=== PATIENT | male | born 1980 | race Caucasian/White ===

== ENCOUNTER 2021-03-30 11:38 | Outpatient (REF) | payer MEDICARE, MEDICAID, SELFPAY ==
--- NOTE | 2021-04-06 10:46 | MHC.AU.ANO ---
Adult Audiological Evaluation Date of Visit: 03/30/21 Drop Board Man Used: Not Applicable Reason for Appointment: Audiologic evaluation due to decreased hearing in the left ear. Preet was accompanied today by his parents who report he frequently experiences occluding cerumen and had his ears cleaned approximately one month ago. Does patient feel they have a hearing loss?: Yes If Yes, Which Ear?: Left Ear Has hearing been tested previously?: Yes Previous Hearing Test Results: As a child, results are not available for review. Hearing Handicap Inventory: HHIE SCORE: 26 Based on HHIE score, patient has: Severe perceived hearing handicap Ear History: Ear Infections in Childhood: Question of Both Ears History of Ear Wax Buildup: Both Ears History of occupational noise exposure?: No Medical History: Medical History: Down Syndrome, Thyroid Disease, Mzpt-Wipjaivuf-Iuwcl Pattern, Legally Blind (Corneal Transplant), Gout Medication List: Doxycycline Hyclate, Levothyroxine, Ibuprofen, Fluorometholone drops Otoscopy: Right Ear: Partially occluded with cerumen Left Ear: Partially occluded with cerumen Tympanometry: Tympanometry performed due to: To assess integrity of the middle ear system Right Ear: Normal Middle Ear System (Type A) Left Ear: Non-compliant Middle Ear System (Type B) Otoacoustic Emissions Frequency Range Used: 1.6-8 kHz Right Ear Results: Tested several times with highly variable results for each run. Left Ear Results: Tested several times with highly variable results for each run. Hearing Evaluation: Transducer(s) Used: Insert Earphones Bone Conduction Method: Conventional Audiometry Stimuli Used: Pure Tones Right Ear: Description of Hearing: Borderline normal to mild sensorineural hearing loss Left Ear: Description of Hearing: Moderate sensorineural hearing loss through all frequencies Speech Recognition Threshold (SRT): Method Used: Monitored Live Voice Stimuli Used: Spondee Words Right Ear: 25 dB HL Left Ear: 55 dB HL Word Discrimination: Method: Recorded Lists Word Lists Used: NU-6 Right Ear: 100% at 65 dB HL Left Ear: 68% at 85 dB HL Recommendations: - Referral to Ear, Nose, and Throat to address the significant asymmetry and left ear middle ear dysfunction. - Trial with amplification is recommended. for the left ear. - Medical clearance from a physician is required before fitting. - Following medical consultation and receiving medical clearance, Preet may schedule a Hearing Aid Evaluation at this office. - Audiological re-evaluation in one year. Will send a reminder card. Diagnosis: Primary Diagnosis: H69.92 Unspecified Eustachian Tube Dysfunction, Left Ear Secondary Diagnosis: H90.3 Bilateral Sensorineural Hearing Loss Services Performed: Comprehensive Audiological Evaluation (CPT 67672) Diagnostic Otoacoustic Emissions (CPT 04650, 26+TC) Tympanometry (CPT 44685) Signature: Provider: Leonora Schumacher, LUIS-A
== END 2021-03-30 11:39 | disposition home or self-care (01) ==
LOC: HO.SH 11:38
PROVIDERS: Visit Provider Internal Medicine
DX: H69.92 Unspecified Eustachian tube disorder, left ear (principal); H90.3 Sensorineural hearing loss, bilateral
CPT/HCPCS: 92557; 92567; 92588

== ENCOUNTER 2021-07-13 12:34 | Outpatient (REF) | payer MEDICARE, MEDICAID, SELFPAY ==
--- NOTE | 2021-07-16 13:31 | MHC.AU.HAS ---
Hearing Aid Evaluation Date of Visit: 07/13/21 Window Shade Cloth Sewer Used: Parents Accompanied Historical Information: Description of Hearing: Right ear - Borderline normal to mild sensorineural hearing loss Left ear - Moderate sensorineural hearing loss through all frequencies Current personal amplification information, if applicable: NONE Summary: Due to the asymmetric hearing loss and fluctuating change in hearing related to cerumen build-up as well as middle ear function, advise bilateral BTE hearing aids with standard earmolds. To help Preet be more independent with the aids, advise rechargeable hearing aids. Mother will be able to use [email or web address].tv Jaqueline for remote adjustments if needed. Performed cerumen removal for both ears and bilateral impressions taken without complication. Hearing Aid Prescription: Based on the individual?s shared listening needs, communication environments, dexterity, desire for connectivity, and personal preferences, the following prescription for amplification has been made: Right ear: Supervisor [place]: Parsimotion Model: Intexys AI 1600 BTE-R Battery Size: Rechargeable Color: Champagne Tubing: Tube Lock Type of Mold: Rika Skeleton Left ear: Left ear prescription to be same as Right Hearing Aid above: Supervisor [place]: Parsimotion Model: [employer] AI 1600 BTE-R Battery Size: Rechargeable Color: Champagne Tubing: Tube Lock Type of Mold: Rika Skeleton Plan of Care: Patient wishes to purchase hearing aids as prescribed Action Taken/Action Needed: Earmold Impressions Taken Hearing Instrument Fitting to be scheduled when materials arrive Comments: Medical Clearance in chart Primary Diagnosis: H90.3 Bilateral Sensorineural Hearing Loss Signature: Provider: Leonora Schumacher, CCC-A
== END 2021-07-13 12:35 | disposition home or self-care (01) ==
LOC: HO.HAP 12:34
PROVIDERS: Visit Provider Otolaryngology
DX: Z46.1 Encounter for fitting and adjustment of hearing aid (principal); H90.3 Sensorineural hearing loss, bilateral
CPT/HCPCS: 92591; V5275

== ENCOUNTER 2021-08-01 10:28 | Outpatient (REF) | payer MEDICARE, MEDICAID, SELFPAY | END 2021-08-01 10:29 | disposition home or self-care (01) | LOC: HO.HAP 10:28 | PROVIDERS: Visit Provider Otolaryngology | DX: Z46.1 Encounter for fitting and adjustment of hearing aid (principal); H90.3 Sensorineural hearing loss, bilateral | CPT/HCPCS: V5011; V5020; V5160; V5261; V5264 ==

== ENCOUNTER 2021-08-17 10:39 | Outpatient (REF) | payer MEDICARE, MEDICAID, SELFPAY | END 2021-08-17 10:40 | disposition home or self-care (01) | LOC: HO.HAP 10:39 | PROVIDERS: Visit Provider Internal Medicine | DX: Z13.89 Encounter for screening for other disorder (principal) ==

== ENCOUNTER 2021-09-25 10:35 | Outpatient (REF) | payer MEDICARE, MEDICAID, SELFPAY ==
[2021-09-25 10:41] LABS: MANUAL DIFF FLAG NO
[2021-09-25 10:54] LABS: Basophils Absolute Auto 0.1 X10*3/uL (0.0-0.2); Basophils Percent Auto 1.1 % (0-2); Eosinophils Percent Auto 0.5 % (0-4); Hematocrit 46.3 % (42.0-52.0); Hemoglobin 15.2 g/dl (14.0-18.0); Imm Gran Abs Auto 0.02 X10*3/uL (0.00-0.03); Imm Gran Pct Auto 0.3 % (0.0-0.4); Lymphocytes Absolute Auto 3.1 X10*3/uL (1.2-4.9); Mean Corpuscular HGB Conc 32.8 g/dl (31.0-36.0); Mean Corpuscular Hemoglobin 32.3 pg (27.0-33.0); Mean Corpuscular Volume 98.3 fL (80.0-98.0); Mean Platelet Volume 9.8 fL (9.4-12.4); Monocytes Absolute Auto 0.5 X10*3/uL (0.1-1.2); Monocytes Percent Auto 7.8 % (2-11); Neutrophils Absolute Auto 2.8 x10*3/uL (2.0-8.3); Neutrophils Percent Auto 43.3 % (45-73); Platelet Count 260 X10*3/uL (160-400); Red Blood Count 4.71 X10*6/uL (4.60-5.80); White Blood Count 6.5 X10*3/uL (4.8-10.8)
[2021-09-25 11:01] LABS: Appearance Urine CLEAR; Color Urine YELLOW; Glucose Urine UA NEG (NEG); Leukocyte Esterase Urine NEG (NEG); Nitrite Urine NEG (NEG); PH 6.5 (5.0-8.0); Specific Gravity - Urine 1.025 (1.005-1.025); Urine Blood NEG (NEG); Urine Ketones NEG (NEG); Urine Protein NEG (NEG-TRACE)
[2021-09-25 11:13] LABS: Alanine Aminotransferase 31 U/L (0-40); Albumin Level 3.7 g/dL (3.5-5.0); Alkaline Phosphatase 89 U/L (39-117); Anion Gap 14 (12-20); Aspartate Amino Transferase 28 U/L (5-37); Bilirubin Total 0.9 mg/dL (0.0-1.0); Blood Urea Nitrogen 15 mg/dL (9-16); Calcium 8.5 mg/dL (8.4-10.2); Carbon Dioxide 27 mmol/L (22-29); Chloride 105 mmol/L (96-108); Cholesterol 191 mg/dL; Estimated Glomerular Filt Rate > 60; Glucose Fasting 94 mg/dL (60-99); HDL Cholesterol 44 mg/dL; LDL Cholesterol Calculated 127 mg/dl; Sodium 142 mmol/L (135-145); Total Protein 7.2 g/dL (6.5-8.0); Triglycerides 100 mg/dL
[2021-09-25 11:22] LABS: PSA,Total (Free>4and<10) 0.05 ng/mL (0.00-4.00); TSH reflex Free T4 0.63 uIU/mL (0.32-4.0)
== END 2021-09-25 10:36 | disposition home or self-care (01) ==
LOC: HO.LNP 10:35
PROVIDERS: PCP Internal Medicine; Visit Provider Internal Medicine
DX: Z12.5 Encounter for screening for malignant neoplasm of prostate (principal); E03.8 Other specified hypothyroidism
CPT/HCPCS: 80053; 80061; 81003; 84153; 84443; 85025

== ENCOUNTER 2021-10-23 10:44 | Outpatient (REF) | payer MEDICARE, MEDICAID, SELFPAY ==
[2021-10-23 10:47] LABS: MANUAL DIFF FLAG NO
[2021-10-23 10:49] LABS: Basophils Absolute Auto 0.1 X10*3/uL (0.0-0.2); Basophils Percent Auto 1.1 % (0-2); Eosinophils Absolute Auto 0.1 X10*3/uL (0.0-0.4); Eosinophils Percent Auto 0.7 % (0-4); Hematocrit 49.4 % (42.0-52.0); Imm Gran Abs Auto 0.02 X10*3/uL (0.00-0.03); Imm Gran Pct Auto 0.3 % (0.0-0.4); Lymphocytes Absolute Auto 3.5 X10*3/uL (1.2-4.9); Lymphocytes Percent Auto 47.1 % (20-40); Mean Corpuscular HGB Conc 32.4 g/dl (31.0-36.0); Mean Corpuscular Hemoglobin 31.9 pg (27.0-33.0); Mean Corpuscular Volume 98.6 fL (80.0-98.0); Mean Platelet Volume 9.6 fL (9.4-12.4); Monocytes Absolute Auto 0.5 X10*3/uL (0.1-1.2); Monocytes Percent Auto 6.8 % (2-11); Neutrophils Absolute Auto 3.2 x10*3/uL (2.0-8.3); Platelet Count 257 X10*3/uL (160-400); Red Blood Count 5.01 X10*6/uL (4.60-5.80); White Blood Count 7.3 X10*3/uL (4.8-10.8)
== END 2021-10-23 10:45 | disposition home or self-care (01) ==
LOC: HO.LNP 10:44
PROVIDERS: Visit Provider Internal Medicine
DX: D72.820 Lymphocytosis (symptomatic) (principal)
CPT/HCPCS: 85025

== ENCOUNTER 2022-07-11 14:11 | Outpatient (REF) | payer MEDICARE, MEDICAID, SELFPAY | END 2022-07-11 14:12 | disposition home or self-care (01) | LOC: HO.SH 14:11 | PROVIDERS: Visit Provider Internal Medicine | DX: Z01.118 Encounter for examination of ears and hearing with other abnormal findings (principal); H90.3 Sensorineural hearing loss, bilateral | CPT/HCPCS: 92557; 92567 ==

== ENCOUNTER 2022-10-03 11:06 | Outpatient (REF) | payer MEDICARE, MEDICAID, SELFPAY ==
[2022-10-03 11:09] LABS: MANUAL DIFF FLAG NO
[2022-10-03 11:26] LABS: Basophils Absolute Auto 0.1 X10*3/uL (0.0-0.2); Basophils Percent Auto 1.1 % (0-2); Eosinophils Percent Auto 0.5 % (0-4); Hematocrit 45.8 % (42.0-52.0); Hemoglobin 15.3 g/dl (14.0-18.0); Imm Gran Abs Auto 0.02 X10*3/uL (0.00-0.03); Imm Gran Pct Auto 0.3 % (0.0-0.4); Lymphocytes Absolute Auto 2.8 X10*3/uL (1.2-4.9); Lymphocytes Percent Auto 43.6 % (20-40); Mean Corpuscular HGB Conc 33.4 g/dl (31.0-36.0); Mean Corpuscular Hemoglobin 32.5 pg (27.0-33.0); Mean Corpuscular Volume 97.2 fL (80.0-98.0); Mean Platelet Volume 9.8 fL (9.4-12.4); Monocytes Absolute Auto 0.6 X10*3/uL (0.1-1.2); Monocytes Percent Auto 8.7 % (2-11); Neutrophils Percent Auto 45.8 % (45-73); Platelet Count 254 X10*3/uL (160-400); Red Blood Count 4.71 X10*6/uL (4.60-5.80); Red Cell Distribution Width 13.7 % (11.0-16.0); White Blood Count 6.4 X10*3/uL (4.8-10.8)
[2022-10-03 11:42] LABS: Appearance Urine Clear; Color Urine Yellow; Glucose Urine UA Negative (Negative); Leukocyte Esterase Urine Negative (Negative); Nitrite Urine Negative (Negative); Specific Gravity - Urine >= 1.030 (1.005-1.025); Urine Blood Negative (Negative); Urine Ketones Negative (Negative); Urine Protein Negative (Neg-Trace)
[2022-10-03 11:46] LABS: Alanine Aminotransferase 30 U/L (0-40); Albumin Level 3.7 g/dL (3.5-5.0); Alkaline Phosphatase 85 U/L (39-117); Anion Gap 12 (12-20); Aspartate Amino Transferase 26 U/L (5-37); Bilirubin Total 1.1 mg/dL (0.0-1.0); Blood Urea Nitrogen 13 mg/dL (9-16); Calcium 8.2 mg/dL (8.4-10.2); Carbon Dioxide 29 mmol/L (22-29); Chloride 103 mmol/L (96-108); Cholesterol 196 mg/dL; Estimated Glomerular Filt Rate > 60; Glucose Fasting 90 mg/dL (60-99); HDL Cholesterol 41 mg/dL; LDL Cholesterol Calculated 139 mg/dl; Potassium 3.9 mmol/L (3.3-5.1); Sodium 140 mmol/L (135-145); Total Protein 6.8 g/dL (6.5-8.0); Triglycerides 82 mg/dL
[2022-10-03 12:02] LABS: PSA,Total (Free>4and<10) < 0.10 ng/mL (0.00-4.00)
== END 2022-10-03 11:07 | disposition home or self-care (01) ==
LOC: HO.LNP 11:06
PROVIDERS: Visit Provider Internal Medicine
DX: D72.820 Lymphocytosis (symptomatic) (principal); E03.8 Other specified hypothyroidism; Z12.5 Encounter for screening for malignant neoplasm of prostate
CPT/HCPCS: 80053; 80061; 81003; 84153; 85025

== ENCOUNTER 2023-10-06 10:47 | Outpatient (REF) | payer MEDICARE, MEDICAID, SELFPAY ==
[2023-10-06 10:51] LABS: MANUAL DIFF FLAG NO
[2023-10-06 11:42] LABS: Basophils Absolute Auto 0.1 X10*3/uL (0.0-0.2); Basophils Percent Auto 1.2 % (0-2); Eosinophils Percent Auto 0.5 % (0-4); Hematocrit 48.8 % (42.0-52.0); Hemoglobin 16.2 g/dl (14.0-18.0); Imm Gran Abs Auto 0.02 X10*3/uL (0.00-0.03); Imm Gran Pct Auto 0.3 % (0.0-0.4); Lymphocytes Absolute Auto 3.7 X10*3/uL (1.2-4.9); Mean Corpuscular HGB Conc 33.2 g/dl (31.0-36.0); Mean Corpuscular Hemoglobin 32.3 pg (27.0-33.0); Mean Corpuscular Volume 97.2 fL (80.0-98.0); Mean Platelet Volume 9.8 fL (9.4-12.4); Monocytes Absolute Auto 0.5 X10*3/uL (0.1-1.2); Monocytes Percent Auto 6.3 % (2-11); Neutrophils Absolute Auto 3.3 x10*3/uL (2.0-8.3); Neutrophils Percent Auto 43.7 % (45-73); Platelet Count 257 X10*3/uL (160-400); Red Blood Count 5.02 X10*6/uL (4.60-5.80); Red Cell Distribution Width 14.4 % (11.0-16.0); White Blood Count 7.6 X10*3/uL (4.8-10.8)
[2023-10-06 11:43] LABS: Appearance Urine Clear; Color Urine Yellow; Glucose Urine UA Negative (Negative); Leukocyte Esterase Urine Negative (Negative); Nitrite Urine Negative (Negative); PH 5.5 (5.0-9.0); Specific Gravity - Urine 1.025 (1.005-1.025); Urine Blood Negative (Negative); Urine Ketones Negative (Negative); Urine Protein Negative (Neg-Trace)
[2023-10-06 11:47] LABS: Bacteria Urine None Seen (None Seen); Hyaline Casts Urine 0-2 /LPF (0-2); RBC Urine 0-2 /HPF (0-2); Squamous Epithelial Cell Urine 0-2 /HPF (0-2); WBC Urine 0-5 /HPF (0-5)
[2023-10-06 12:00] LABS: Alanine Aminotransferase 41 U/L (0-40); Albumin Level 3.8 g/dL (3.5-5.0); Alkaline Phosphatase 84 U/L (39-117); Anion Gap 13 (12-20); Aspartate Amino Transferase 34 U/L (5-37); Bilirubin Total 0.7 mg/dL (0.0-1.0); Blood Urea Nitrogen 16 mg/dL (9-16); Calcium 9.4 mg/dL (8.4-10.2); Carbon Dioxide 29 mmol/L (22-29); Chloride 105 mmol/L (96-108); Cholesterol 186 mg/dL (<200); Estimated Glomerular Filt Rate > 60; Glucose Fasting 97 mg/dL (60-99); HDL Cholesterol 47 mg/dL (>40); LDL Cholesterol Calculated 120 mg/dL (<100); Potassium 4.1 mmol/L (3.3-5.1); Sodium 143 mmol/L (135-145); Total Protein 7.7 g/dL (6.5-8.0); Triglycerides 96 mg/dL (<150)
[2023-10-06 12:15] LABS: PSA,Total (Free>4and<10) < 0.10 ng/mL (0.00-4.00); TSH reflex Free T4 0.23 uIU/mL (0.32-4.0)
[2023-10-06 12:56] LABS: Free T4 (Free Thyroxine) 1.07 ng/dL (0.71-1.85)
== END 2023-10-06 10:48 | disposition home or self-care (01) ==
LOC: HO.LNP 10:47
PROVIDERS: Visit Provider Internal Medicine
DX: E03.8 Other specified hypothyroidism (principal); D72.820 Lymphocytosis (symptomatic); Z12.5 Encounter for screening for malignant neoplasm of prostate
CPT/HCPCS: 80053; 80061; 81001; 84153; 84439; 84443; 85025

== ENCOUNTER 2023-11-24 09:27 | Outpatient (REF) | payer MEDICARE, MEDICAID, SELFPAY | END 2023-11-24 09:28 | disposition home or self-care (01) | LOC: HO.HAP 09:27 | PROVIDERS: Visit Provider Internal Medicine | DX: Z13.89 Encounter for screening for other disorder (principal) ==

== ENCOUNTER 2023-11-26 08:15 | Outpatient (REF) | payer MEDICARE, MEDICAID, SELFPAY ==
--- NOTE | 2023-11-26 09:27 | MHC.AU.HA3 ---
Hearing Instrument Follow-Up- Binaural Date of Visit: 11/26/23 Right Ear: Vernon, Model, Color, Serial Number: Rika Bonilla AI 1600 ARNIEE-Ondina Rod Serial #[id number] Sweatband Separator Repair Warranty: 10/15/2024 Sweatband Separator Loss and Damage Warranty: 10/15/2024 [facility] Service Plan: 08/01/2022 Battery Size: Rechargeable Digital Press Operator/Slim Tube: Earmold/Dome/CShell/SlimTip:Rika Skeleton - remake warranty 10/22/2021 Type of Wax Guard: Dispensed By: [facility] Date of Fittin08/01/2021 Left Ear: Vernon, Model, Color, Serial Number: Rika Bonilla AI 1600 ARNIEE-R Viola Serial #[id number] Sweatband Separator Repair Warranty: 10/15/2024 Sweatband Separator Loss and Damage Warranty: 10/15/2024 [facility] Service Plan: 08/01/2022 Battery Size: Rechargeable Digital Press Operator/Slim Tube: Earmold/Dome/CShell/SlimTip: Rika Skeleton - remake warranty 10/22/2021 Type of Wax Guard: Dispensed By: [facility] Date of Fittin08/01/2021 Follow-Up Summary: HAs had been dropped off. Cleaned, checked, and retubed by NEERAJ. Preet's mother requested appointment to pick up operator to confirm they were working okay. Fit looks good. Preet reports good subjective comfort and benefit. Mother had some questions about the dusty, ultimately decided there was no benefit to her running the dusty on her phone connected to his hearing aids. She notes he has been seeing the ENT regularly since last eval visit with Cristina in 2021. Recommendations: Recommendations: Hearing instrument maintenance in 6 months, or sooner if needed. Diagnosis Code(s): Primary Diagnosis: H90.3 Bilateral Sensorineural Hearing Loss Secondary Diagnosis: H90.3 Bilateral Sensorineural Hearing Loss Signature: Provider: Sita Lee, CCC-A
== END 2023-11-26 08:16 | disposition home or self-care (01) ==
LOC: HO.HAP 08:15
PROVIDERS: Visit Provider Internal Medicine
DX: Z46.1 Encounter for fitting and adjustment of hearing aid (principal); H90.3 Sensorineural hearing loss, bilateral
CPT/HCPCS: 92593; 99499

== ENCOUNTER 2024-02-06 09:13 | Outpatient (REF) | payer MEDICARE, MEDICAID, SELFPAY ==
--- NOTE | 2024-02-06 12:13 | MHC.AU.HA3 ---
Addendum entered and electronically signed by Leonora Martinez, CCC-A 02/06/24 12:25: Earmolds are ripped, ordered new molds from scans on file. Will call patient to have new molds put on hearing aids once they arrive. Order # [id number] Original Note: Hearing Instrument Follow-Up- Binaural Date of Visit: 02/06/24 Right Ear: Vernon, Model, Color, Serial Number: Rika Bonilla AI 1600 BTE-Ondina Rod Serial #[id number] Php Software Engineer Repair Warranty: 10/15/2024 Php Software Engineer Loss and Damage Warranty: 10/15/2024 [facility] Service Plan: 08/01/2022 Battery Size: Rechargeable Inner Tube Inserter/Slim Tube: Earmold/Dome/CShell/SlimTip:Rika Skeleton - remake warranty 10/22/2021 Type of Wax Guard: Dispensed By: [facility] Date of Fittin08/01/2021 Left Ear: Vernon, Model, Color, Serial Number: Rika Bonilla AI 1600 BTE-R Viola Serial #[id number] Php Software Engineer Repair Warranty: 10/15/2024 Php Software Engineer Loss and Damage Warranty: 10/15/2024 [facility] Service Plan: 08/01/2022 Battery Size: Rechargeable Inner Tube Inserter/Slim Tube: Earmold/Dome/CShell/SlimTip: Rika Skeleton - remake warranty 10/22/2021 Type of Wax Guard: Dispensed By: [facility] Date of Fittin08/01/2021 Follow-Up Summary: Preet is here with his mother for evaluation, last tested here 2021 when there was a significant shift in his right thresholds, was reportedly seen by ENT who did not suspect a sudden loss (mom is unsure if he had a test there, or exactly what the outcome of the appointment was). Testing today essentially stable with 2021 evaluation. Both tubes clogged with wax, retubed and cleaned aids/earmolds. Listening check ok. Reprogrammed aids to current thresholds as right ear was still significantly under target. Preet reported he could hear much better after cleaning and adjustments. 6 month maintenance recommended. Results of audio to be sent to ENT, reports he is being seen for cerumen management there on Friday. Recommendations: Recommendations: Hearing instrument maintenance in 6 months, or sooner if needed. Diagnosis Code(s): Primary Diagnosis: H90.3 Bilateral Sensorineural Hearing Loss Signature: Provider: Leonora Martinez, CCC-A
== END 2024-02-06 09:14 | disposition home or self-care (01) ==
LOC: HO.SH 09:13
PROVIDERS: Visit Provider Internal Medicine
DX: Z01.118 Encounter for examination of ears and hearing with other abnormal findings (principal); Z46.1 Encounter for fitting and adjustment of hearing aid; H90.3 Sensorineural hearing loss, bilateral
CPT/HCPCS: 92557; 92593; 99499

== ENCOUNTER 2024-02-17 11:14 | Outpatient (REF) | payer MEDICARE, MEDICAID, SELFPAY | END 2024-02-17 11:15 | disposition home or self-care (01) | LOC: HO.HAP 11:14 | PROVIDERS: Visit Provider Internal Medicine | DX: Z46.1 Encounter for fitting and adjustment of hearing aid (principal); H90.3 Sensorineural hearing loss, bilateral | CPT/HCPCS: V5264 ==

== ENCOUNTER 2024-08-10 09:45 | Outpatient (REF) | payer MEDICARE, MEDICAID, SELFPAY ==
--- OUTSIDE RECORDS SUMMARY | 2024-08-10 10:13 | XMS_ITS | Continuity of Care Document ---
Author Organization [place] - [facility], [facility] Address [address] [place] [address] Assessment No assessment recorded. Plan of Treatment Reminders Order Date Submit Date Provider Last Modified By Organization Details Last Modified Time Details Appointments Establish ed 30 2024 10:00A M MIKY Nj MD Not available Not available Not available Lab None recorded. Referral None recorded. Procedures None recorded. Surgeries None recorded. Imaging None recorded. Medication Orders None recorded. Patient TargetsNo targets recorded. Patient InstructionsNo instructions recorded. Reason for Referral None Reported. Problems Name Problem SNOMED Code Status Onset Date Resolution Date Notes Provider Name and Address Organization Details Recorded Time Impacted cerumen of bilateral ears 48972997174 79482 Active 2020 Impacted cerumen, bilateral ; Note: Date Diagnosed : 1 11:09 AM (H61.23) Not Available [facility] 4 03:18:52 Sensorine ural hearing loss of bilateral ears 875067039 Active 2020 Sensorine ural hearing loss, bilateral ; Note: Date Diagnosed : 1 11:09 AM (H90.3) Not Available [facility] 4 03:18:52 Impacted cerumen in left ear 21199436468 38446 Active 2023 MIKY WALLACE MD [address] [place] [address], [place], [address] , [facility] - [facility] 4 10:11:42 Impacted cerumen in right ear 53728228493 12309 Active 2023 MIKY WALLACE MD [address] [place], [place] [address] [place], [address] , [facility] - [facility] 4 10:11:42 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 Procedures Surgical History Date Name Laterality Status Provider Name and Address Organization Details Recorded Time 4 Cerumen removal with microscope bilateral completed MIKY WALLACE MD [address] [facility],[place] [address], [place], [address], [place] - [facility] 07/12/2024 11:34:49 4 Cerumen removal with microscope bilateral completed MIKY WALLACE MD [address] [facility],[place] [address], [place], [address], [facility] - [facility] 02/09/2024 10:12:24 Imaging Results None recorded. Procedure Notes None recorded. Medical Equipment None Reported. Medications Name Sig Start Date Stop Date Status Note LastModified by Organization Details LastModified Time doxycyclin e hyclate 100 mg capsule active Medication ID: [id number] Marlena nd Name: doxycyclin e hyclate Se nd Method: E-Prescrib ed Subs Allowed: subs OK Medicat ionGeneric Name: doxycyclin e hyclate Not Available Not Available Not Available ibuprofen 800 mg tablet active Medication ID: [id number] Marlena nd Name: ibuprofen Send Method: E-Prescrib ed Subs Allowed: subs OK Medicat ionGeneric Name: ibuprofen Not Available Not Available Not Available levothyrox ine 100 mcg tablet TAKE 1 TABLET BY MOUTH EVERY DAY IN THE MORNING active Not Available Not Available No t Available neomycin-p olymyxin-d exameth 3.5 mg/mL-10,0 00 unit/mL-0. 1% eye drops active Medication ID: [id number] Marlena nd Name: neomycin-p olymyxin B-dexameth Send Method: E-Prescrib ed Subs Allowed: subs OK Medicat ionGeneric Name: neomycin-p olymyxin B-dexameth Not Available Not Available Not Available fluorometh olone 0.1 % eye drops,susp ension SHAKE LIQUID AND INSTILL 1 DROP IN RIGHT EYE DAILY active Not Available Not Available No t Available bacitracin -polymyxin B 500 unit-10,00 0 unit/gram eye ointment active Medication ID: [id number] Bra nd Name: bacitracin -polymyxin B Send Method: E-Prescrib ed Subs Allowed: subs OK Medicat ionGeneric Name: bacitracin -polymyxin B Not Available Not Available Not Available Vitals Date Recorded Body height Body mass index (BMI) Body weight Provider Name and Address Organization Details Last Updated DateTime 07/12/2024 162.56 cm 39.8 kg/m2 304638.43 g Teena Nye [place] - [facility] 07/12/2024 11:14:24 Social History None recorded. Functional Status None recorded. Mental Status None recorded. Family History Nothing Reported. Medical History No medical history recorded. Past Encounters Encounter ID Performer Location Encounter Start Date Encounter Closed Date Diagnosis/Indication Diagnosis SNOMED-CT Code Diagnosis ICD10 Code Diagnosis Note [id number] MIKY WALLACE MD [facility] of [address] [address] 07/12/2024 11:03:02 07/12/2024 11:36:25 Impacted cerumen of bilateral ears [id number] 460854 H61.23 Recurrent Cerumen Impactions : Ears were meticulous ly cleaned bilaterall y today with a curette and suction. The patient tolerated this well and will follow up for repeat debridemen t per routine. Complete t risomy 21 syndrome 26964571 Q90.9 requires debridemen ts. using VANEGAS. no problems with hearing. Sensorineu ral hearing loss of bilateral ears 736228053 H90.3 Had hearing aids adjusted. Keep using. Health Concerns Section Related Observation LastModified by Organization Detai ls LastModified Time None Recorded Concern Status LastModified by Organization Details LastModified Time None Recorded Payers Encounter Date Sequence Insurance Name Policy Number Policy King Covered Member ID King Member ID Guarantor Name 07/12/2024 2 [place] [facility] Preet Ordonez [id number] Preet Ordonez 07/12/2024 1 [place] [employer] Preet Ordonez [id number] Preet Ordonez Notes Date Note Type Note Provider Name and Address Organization Details Recorded Time 07/12/2024 text/html The patient presents for cerumen impaction. The patient denies other ear problems. I reviewed his audio which showed mild to moderate SNHL AU. MIKY WALLACE MD [address] [place] [address], [phone], [facility] - [facility] 07/12/2024 11:35:25
--- OUTSIDE RECORDS SUMMARY | 2024-08-10 10:13 | XMS_ITS | Data Portability ---
Author Organization [place] - [facility], Allergy Address [address] [address] Assessment No assessment recorded. Plan of Treatment [...] instructions recorded. Reason for Referral None Reported. Results Created Date Observation Date Name Description Value Unit Range Abnormal Flag Note LastModifiedBy Organization Detail LastModifiedTime 02/11/20 24 02/06/2024 audio gram No observ ation record ed. [email or web address] Not Available 2023 09:50:49 03/25/20 24 03/30/2021 imagi ng/di agnos tic resul t No observ ation record ed. [email or web address] Not Available 17:01:07 03/25/20 24 03/30/2021 imagi ng/di agnos tic resul t No observ ation record ed. [email or web address] Not Available 17:01:09 03/25/20 24 06/15/2021 imagi ng/di agnos tic resul t No observ ation record ed. [email or web address] Not Available 17:01:15 03/25/20 24 06/15/2021 imagi ng/di agnos tic resul t No observ ation record ed. [email or web address] Not Available 17:01:16 03/25/20 24 06/15/2021 audio gram No observ ation record ed. [email or web address] Not Available 17:01:25 Result Notes None recorded. Problems Name Problem SNOMED Code Status Onset Date Resolution Date Notes Provider Name and Address Organization Details Recorded Time Impacted cerumen of bilateral ears [id number] 01602 Active 2020 Impacted cerumen, bilateral ; Note: Date Diagnosed : 1 11:09 AM (H61.23) Not Available [facility] 4 03:18:52 Sensorine ural hearing loss of bilateral ears 504490692 Active 2020 Sensorine ural hearing loss, bilateral ; Note: Date Diagnosed : 1 11:09 AM (H90.3) Not Available [facility] 4 03:18:52 Impacted cerumen in left ear 24594330988 74900 Active 2023 MIKY WALLACE MD [address] [place] [address],[place] [address], [place], [address] , [place] - [facility] 4 10:11:42 Impacted cerumen in right ear 38268498203 20243 Active 2023 MIKY WALLACE MD [address] [place] [address],[place] [address], [place], [address] , [facility] - [facility] 4 10:11:42 Complete trisomy 21 syndrome 14504498 Active 2023 MIKY WALLACE MD [address] [place] [address],[place] [address], [place], [address] , [facility] - [facility] 4 11:34:30 Problem Notes None recorded. Procedures Surgical History Date Name Laterality Status Provider Name and Address Organization Details Recorded Time 4 Cerumen removal with microscope bilateral completed MIKY WALLACE MD [address] [place] [address],[address], [address], [facility] 07/12/2024 11:34:49 4 Cerumen removal with microscope bilateral completed MIKY WALLACE MD [address] [place] [address],[address], [address], [facility] - [facility] [place] 02/09/2024 10:12:24 Imaging Results Imaging Date Name Status LastModified by [facility] Details LastModified Time 02/06/2024 audiogram completed [email or web address] Information no t available 02/11/2024 09:50:49 03/30/2021 imaging/diagno stic result completed Information not available 03/25/2024 17:01:07 03/30/2021 imaging/diagno stic result completed Information not available 03/25/2024 17:01:09 06/15/2021 imaging/diagno stic result completed Information not available 03/25/2024 17:01:15 06/15/2021 imaging/diagno stic result completed Information not available 03/25/2024 17:01:16 06/15/2021 audiogram completed Information not available 03/25/2024 17:01:25 Procedure Notes None recorded. Medical Equipment None Reported. Medications Name Sig Start Date Stop Date Status Note LastModified by Organization Details LastModified Time doxycyclin e hyclate 100 mg capsule active Medication ID: [id number] Bra nd Name: doxycyclin e hyclate Se nd Method: E-Prescrib ed Subs Allowed: subs OK Medicat ionGeneric Name: doxycyclin e hyclate Not Available Not Available Not Available ibuprofen 800 mg tablet active Medication ID: [id number] Bra nd Name: ibuprofen Send Method: E-Prescrib ed Subs Allowed: subs OK Medicat ionGeneric Name: ibuprofen Not Available Not Available Not Available levothyrox ine 100 mcg tablet TAKE 1 TABLET BY MOUTH EVERY DAY IN THE MORNING active Not Available Not Available No t Available neomycin-p olymyxin-d exameth 3.5 mg/mL-10,0 00 unit/mL-0. 1% eye drops active Medication ID: [id number] Bra nd Name: neomycin-p olymyxin B-dexameth Send Method: E-Prescrib ed Subs Allowed: subs OK Medicat ionGeneric Name: neomycin-p olymyxin B-dexameth Not Available Not Available Not Available fluorometh olone 0.1 % eye drops,susp ension SHAKE LIQUID AND INSTILL 1 DROP IN RIGHT EYE DAILY active Not Available Not Available No t Available bacitracin -polymyxin B 500 unit-10,00 0 unit/gram eye ointment active Medication ID: [id number] Bra nd Name: bacitracin -polymyxin B Send Method: E-Prescrib ed Subs Allowed: subs OK Medicat ionGeneric Name: bacitracin -polymyxin B Not Available Not Available Not Available Vitals Date Recorded Body height Body mass index (BMI) Body weight Provider Name and Address Organization Details Last Updated DateTime 02/09/2024 162.56 cm 39.8 kg/m2 293890.43 g Teena Nye [place] - [facility] 02/09/2024 09:42:14 Date Recorded Body height Body mass index (BMI) Body weight Provider Name and Address Organization Details Last Updated DateTime 07/12/2024 162.56 cm 39.8 kg/m2 029935.43 g Teena Nye [facility] 07/12/2024 11:14:24 Social History None recorded. Functional Status None recorded. Mental Status None recorded. Family History Nothing Reported. Medical History No medical history recorded. Past Encounters Encounter ID Performer Location Encounter Start Date Encounter Closed Date Diagnosis/Indication Diagnosis SNOMED-CT Code Diagnosis ICD10 Code Diagnosis Note [id number] MIKY WALLACE MD [facility] on [address] [place] [phone] 02/09/2024 09:20:44 02/09/2024 10:16:32 Impacted cerumen of bilateral ears [id number] 339469 H61.23 Recurrent Cerumen Impactions : Ears were meticulous ly cleaned bilaterall y today with a curette and suction. The patient tolerated this well and will follow up for repeat debridemen t per routine. Sensorineu ral hearing loss of bilateral ears 736155265 H90.3 Had hearing aids adjusted. Keep using. [id number] MIKY WALLACE MD [facility] of [facility] on [address] [place] [phone] 07/12/2024 11:03:02 07/12/2024 11:36:25 Impacted cerumen of bilateral ears 3630002688 741489 H61.23 Recurrent Cerumen Impactions : Ears were meticulous ly cleaned bilaterall y today with a curette and suction. The patient tolerated this well and will follow up for repeat debridemen t per routine. 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 using VANEGAS. no problems with hearing. Sensorineu ral hearing loss of bilateral ears 555851145 H90.3 Had hearing aids adjusted. Keep using. Health Concerns Section Related Observation LastModified by Organization Detai ls LastModified Time None Recorded Concern Status LastModified by Organization Details LastModified Time None Recorded Advance Directives Directive None Recorded Payers Encounter Date Sequence Insurance Name Policy Number Policy King Covered Member ID King Member ID Guarantor Name 02/09/2024 2 [place] [facility] Rpeet D Fern [id number] Preet D Fern 02/09/2024 1 [place] [employer] Preet D Fern [id number] Preet D Fern 07/12/2024 2 [place] Preet D Fern [id number] Preet D Fern 07/12/2024 1 [place] [employer] Preet D Fern [id number] Preet D Fern Notes Date Note Type Note Provider Name and Address Organization Details Recorded Time 02/09/2024 text/html The patient presents for cerumen impaction. The patient denies other ear problems. I reviewed his audio which showed mild to moderate SNHL AU. MIKY WALLACE MD [address] [place] [address], [address], [facility] 02/09/2024 10:13:10 07/12/2024 text/html The patient presents for cerumen impaction. The patient denies other ear problems. I reviewed his audio which showed mild to moderate SNHL AU. MIKY WALLACE MD [address] [place] [address], [address], [facility] 07/12/2024 11:35:25
--- NOTE | 2024-08-10 11:17 | MHC.AU.HA3 ---
Hearing Instrument Follow-Up- Binaural Date of Visit: 08/10/24 Right Ear: Vernon, Model, Color, Serial Number: Rika Bonilla AI 1600 BTE-R [place] Serial #[id number] Bale Breaker Operator Repair Warranty: 10/15/2024 Bale Breaker Operator Loss and Damage Warranty: 10/15/2024 [employer] Service Plan: 08/01/2022 Battery Size: Rechargeable Earmold/Dome/CShell/SlimTip:Rika Skeleton - remake warranty 10/22/2021 Dispensed By: [employer] Date of Fittin08/01/2021 Left Ear: Vernon, , Color, Serial Number: Rika Bonilla AI 1600 BTE-R [place] Serial #[id number] Bale Breaker Operator Repair Warranty: 10/15/2024 Bale Breaker Operator Loss and Damage Warranty: 10/15/2024 [employer] Service Plan: 08/01/2022 Battery Size: Rechargeable Earmold/Dome/CShell/SlimTip: Rika Skeleton - remake warranty 10/22/2021 Dispensed By: [employer] Date of Fittin08/01/2021 Follow-Up Summary: Preet is seen for hearing aid maintenance, accompanied by mother. Denies hearing aid concerns at this time. Reports recent wax removal at ENT. Cleaned aids. Found wax built up in tubes. Cleaned earmolds. Replaced tubing. Listening check positive. Preet reports improvement. Recommendations: Recommendations: Hearing instrument maintenance in 6 months, or sooner if needed. Diagnosis Code(s): Primary Diagnosis: H90.3 Bilateral Sensorineural Hearing Loss Signature: Provider: Sita Lee, [facility]
== END 2024-08-10 09:46 | disposition home or self-care (01) ==
LOC: HO.HAP 09:45
PROVIDERS: Visit Provider Internal Medicine
DX: Z46.1 Encounter for fitting and adjustment of hearing aid (principal); H90.3 Sensorineural hearing loss, bilateral
CPT/HCPCS: 92593; 99499

== ENCOUNTER 2024-10-04 10:55 | Outpatient (REF) | payer MEDICARE, MEDICAID, SELFPAY ==
[2024-10-04 11:00] LABS: MANUAL DIFF FLAG NO
[2024-10-04 11:05] LABS: Basophils Absolute Auto 0.1 X10*3/uL (0.0-0.2); Basophils Percent Auto 1.1 % (0-2); Eosinophils Percent Auto 0.5 % (0-4); Hematocrit 47.1 % (42.0-52.0); Hemoglobin 15.7 g/dl (14.0-18.0); Imm Gran Abs Auto 0.03 X10*3/uL (0.00-0.03); Imm Gran Pct Auto 0.5 % (0.0-0.4); Lymphocytes Percent Auto 44.5 % (20-40); Mean Corpuscular HGB Conc 33.3 g/dl (31.0-36.0); Mean Corpuscular Hemoglobin 32.6 pg (27.0-33.0); Mean Corpuscular Volume 97.7 fL (80.0-98.0); Mean Platelet Volume 9.7 fL (9.4-12.4); Monocytes Absolute Auto 0.6 X10*3/uL (0.1-1.2); Monocytes Percent Auto 8.6 % (2-11); Neutrophils Percent Auto 44.8 % (45-73); Platelet Count 235 X10*3/uL (160-400); Red Blood Count 4.82 X10*6/uL (4.60-5.80); Red Cell Distribution Width 14.4 % (11.0-16.0); White Blood Count 6.7 X10*3/uL (4.8-10.8)
[2024-10-04 11:06] LABS: Appearance Urine Clear; Color Urine Yellow; Glucose Urine UA Negative (Negative); Leukocyte Esterase Urine Negative (Negative); Nitrite Urine Negative (Negative); Specific Gravity - Urine >= 1.030 (1.005-1.025); Urine Blood Negative (Negative); Urine Ketones Negative (Negative); Urine Protein Negative (Neg-Trace)
[2024-10-04 11:15] LABS: Bacteria Urine None Seen (None Seen); Hyaline Casts Urine 0-2 /LPF (0-2); RBC Urine 0-2 /HPF (0-2); Squamous Epithelial Cell Urine 0-2 /HPF (0-2); WBC Urine 0-5 /HPF (0-5)
[2024-10-04 11:37] LABS: Albumin Level 3.6 g/dL (3.5-5.0); Alkaline Phosphatase 87 U/L (39-117); Anion Gap 12 (12-20); Aspartate Amino Transferase 42 U/L (5-37); Bilirubin Total 1.1 mg/dL (0.0-1.0); Blood Urea Nitrogen 16 mg/dL (9-16); Calcium 8.5 mg/dL (8.4-10.2); Carbon Dioxide 27 mmol/L (22-29); Chloride 107 mmol/L (96-108); Cholesterol 189 mg/dL (<200); Estimated Glomerular Filt Rate > 60; Glucose Fasting 91 mg/dL (60-99); HDL Cholesterol 45 mg/dL (>40); LDL Cholesterol Calculated 125 mg/dL (<100); Potassium 3.7 mmol/L (3.3-5.1); Sodium 142 mmol/L (135-145); TSH reflex Free T4 0.14 uIU/mL (0.32-4.0); Total Protein 7.5 g/dL (6.5-8.0); Triglycerides 99 mg/dL (<150)
[2024-10-04 11:40] LABS: PSA,Total (Free>4and<10) < 0.10 ng/mL (0.00-4.00)
[2024-10-04 11:54] LABS: Alanine Aminotransferase 38 U/L (0-40)
[2024-10-04 12:07] LABS: Free T4 (Free Thyroxine) 1.22 ng/dL (0.71-1.85)
--- OUTSIDE RECORDS SUMMARY | 2024-10-04 12:54 | XMS_ITS ---
Author Organization Chano Condon MD Address [address] [place] [phone] Care Team Providers Care Control Clerk Subassembly Name Role Phone KacyChano teresa Primary Care Provider Results Component Value Reference Range Notes Complete Blood Count Auto Di ff (Not yet reviewed by provider) Interpretation: Performing Lab:[facility], [address] [place] [phone] Notes/Report: White Blood Count 6.7 4.8-10.8 X10*3/uL Red Blood Count 4.82 4.60-5.80 X10*6/uL Hemoglobin 15.7 14.0-18.0 g/dl Hematocrit 47.1 42.0-52.0 % Mean Corpuscular Volume 97.7 80.0-98.0 fL Mean Corpuscular Hemoglobin 32.6 27.0-33.0 pg Mean Corpuscular HGB Conc 33.3 31.0-36.0 g/dl Red Cell Distribution Width 14.4 11.0-16.0 % Platelet Count 235 160-400 X10*3/uL Mean Platelet Volume 9.7 9.4-12.4 fL Neutrophils Percent Auto 44.8 45-73 % Imm Gran Pct Auto 0.5 0.0-0.4 % Lymphocytes Percent Auto 44.5 20-40 % Monocytes Percent Auto 8.6 2-11 % Eosinophils Percent Auto 0.5 0-4 % Basophils Percent Auto 1.1 0-2 % NRBC Pct Auto 0.0 0.0-0.2 /100WBC Neutrophils Absolute Auto 3.0 2.0-8.3 x10*3/u L Imm Gran Abs Auto 0.03 0.00-0.03 X10*3/uL Lymphocytes Absolute Auto 3.0 1.2-4.9 X10*3/u L Monocytes Absolute Auto 0.6 0.1-1.2 X10*3/uL Eosinophils Absolute Auto 0.0 0.0-0.4 X10*3/u L Basophils Absolute Auto 0.1 0.0-0.2 X10*3/uL NRBC Abs Auto 0.000 0.0-0.012 X10*3/uL UA ClnCatch+Micro w/rflx Cul t (Not yet reviewed by provider) Interpretation: Performing Lab:[address] [phone] Notes/Report: Urine, Clean Catch Color Urine Yellow Appearance Urine Clear PH 6.0 5.0-9.0 Glucose Urine UA Negative Negative mg/dL Urine Blood Negative Negative Specific [place] - Urine >= 1.030 1.005-1.025 Urine Protein Negative Neg-Trace mg/dL Urine Ketones Negative Negative mg/dL Nitrite Urine Negative Negative Leukocyte Esterase Urine Negative Negative RBC Urine 0-2 0-2 /HPF WBC Urine 0-5 0-5 /HPF Squamous Epithelial Cell Urine 0-2 0-2 /HPF Bacteria Urine None Seen None Seen Hyaline Casts Urine 0-2 0-2 /LPF Comprehensive [place]. Panel Fa st Reviewed date:10/04/2024 12:34:01 PM Interpretation: Performing Lab:[facility], [address] [place] [phone] Notes/Report: Sodium 142 135-145 mmol/L Potassium 3.7 3.3-5.1 mmol/L Chloride 107 96-108 mmol/L Carbon Dioxide 27 22-29 mmol/L Anion Gap 12 12-20 Blood Urea Nitrogen 16 9-16 mg/dL Creatinine 1.05 0.5-1.4 mg/dL Estimated Glomerular Filt Rate > 60 Chronic Kidney Disease: Estimated GFR < 60 mL/min/1.73m2 Severe Kidney Disease: Estimated GFR < 15 mL/min/1.73m2 Glucose Fasting 91 60-99 mg/dL Calcium 8.5 8.4-10.2 mg/dL Bilirubin Total 1.1 0.0-1.0 mg/dL Aspartate Amino Transferase 42 5-37 U/L Alanine Aminotransferase 38 0-40 U/L Total Protein 7.5 6.5-8.0 g/dL Albumin Level 3.6 3.5-5.0 g/dL Alkaline Phosphatase 87 39-117 U/L Lipid Panel Reviewed date:10/04/2024 12:29:28 PM Interpretation: Performing Lab:[address] [phone] Notes/Report: Triglycerides 99 <150 mg/dL Desirable Triglyceride: less than 150 mg/dL Borderline High Triglyceride 150-199 mg/dL High Triglyceride: 200-499 mg/dL Very High Triglyceride: greater than or equal to 5OO mg/dL Cholesterol 189 <200 mg/dL Desirable Cholesterol: less than 200 mg/dL Borderline High Cholesterol: 200-239 mg/dL High Cholesterol: greater than 239 mg/dL LDL Cholesterol Calculated 125 <100 mg/dL Desirable LDL: less than 100 mg/dL Near Optimal/Above Optimal LDL: 110-129 mg/dL Borderline High LDL: 130-159 mg/dL High LDL: 160-189 mg/dL Very High LDL: greater than or equal to 190 mg/dL HDL Cholesterol 45 >40 mg/dL Desirable HDL: greater than 40 mg/dL Note: This HDL assay may give artificially low results in patients with liver disease. PSA,Total (Free>4and<10) Reviewed date:10/04/2024 12:30:34 PM Interpretation: Performing Lab:[address] [phone] Notes/Report: PSA,Total (Free>4and<10) < 0.10 0.00-4.00 ng/mL A Free PSA was not performed: The percentage of Free PSA can be used to enhance the differentiation of prostate cancer from benign prostatic disease in subjects whose PSA levels are between 4.0 and 10.0 ng/mL. For subjects whose PSA levels are below 4.0 or above 10.0 ng/mL, the risk of prostate cancer is determined on the basis of the PSA alone. Therefore the % Free PSA is recommended only for those subjects whose PSA levels are between 4.0 and 10.0 ng/mL. PSA methodology: [place] Alinity i Chemiluminescent Microparticle Immunoassay (CMIA) TSH reflex Free T4 Reviewed date:10/04/2024 12:30:54 PM Interpretation: Performing Lab:[facility], [address] [place] [phone] Notes/Report: TSH reflex Free T4 0.14 0.32-4.0 uIU/mL REASON FOR VISIT FASTING LABS Encounters Encounter Location Date Provider Diagnosis Chano Condon MD [address] [place] [phone] 10/04/2024 Chano Condon Lymphocytosis D72.82 0 and Other specified hypothyroidism E03.8 Assessments Encounter Date Diagnosis (ICD Code) Assessment Notes Treatment Notes Treatment Clinical Notes Section Notes 10/04/2024 Lymphocytosis (ICD-10 - D72.820) 10/04/2024 Other specified hypothyroidism (ICD-10 - E03.8) Plan Of Treatment Pending Test Test Name Order Date Complete Blood Count Auto Diff UA ClnCatch+Micro w/rflx Cult 10/04/2024 Next Appt Details Provider Name:Chano Mcclure ieroni, 10/12/2024 09:30:00 AM, [address] [place] [address], Suite [facility], [place], [place], [phone], Progress Notes * LEMUEL PINKOB:1980 ( 44 yo M)Acc No.[id number]:10/04/2024 Progress Note Patient:?JOESPH AUNDREA Provider:?Chano Condon MD :1980???Age:44 Y???Sex:Male Dino e:10/04/2024 Address:[address] [place] [address], [id number] Subjective: * Chief Complaints: * ???1. FASTING LABS. * Medical History:? Objective: * Vitals:? Assessment: * Assessment: 1.?Lymphocytosis - D72.820 ( Primary)???2.?Other specified hypothyroidism - E03.8??? Plan: * Treatment: 2.?Other specified hypothyro idism?LAB: Complete Blood Count Auto Diff (Collection Date & Time - 10/04/2024 07:15 AM) ?LAB: UA ClnCatch+Micro w/rflx Cult (Collection Date & Time - 10/04/2024 07:15 AM) ?LAB: Comprehensive [place]. Panel Fast (Collection Date & Time - 10/04/2024 07:15 AM) ?LAB: Lipid Panel (Collection Date & Time - 10/04/2024 07:15 AM) ?LAB: PSA,Total (Free>4and<10) (Collection Date & Time - 10/04/2024 07:15 AM) ?LAB: TSH reflex Free T4 (Collection Date & Time - 10/04/2024 07:15 AM) * Procedure Codes:?44773 VENIP UNCT, ROUTINE* * * The named appointment provid er may or may not be the originator of this progress note, and it is not deemed complete until electronically signed by the appointment provider. Sign off status: Pending * Provider:?Chano Condon MD Date:?0 10/04/2024 Generated for Carlos Enrique faulkner/Jazmin/eTransmitting on:?10/04/2024 12:54 PM EST
--- OUTSIDE RECORDS SUMMARY | 2024-10-04 12:54 | XMS_ITS | Patient Health Record ---
Author Organization Chano Condon MD Address [address] [place] [phone] Care Team Providers Care Computational Chemist Name Role Phone KacyChano teresa Primary Care Provider Allergies No Known Allergies Results Component Value Reference Range Notes Complete Blood Count Auto Di ff Reviewed date:10/06/2023 04:50:35 PM Interpretation: Performing Lab:[facility], [address] [place] [phone] Notes/Report: White Blood Count 7.6 4.8-10.8 X10*3/uL Red Blood Count 5.02 4.60-5.80 X10*6/uL Hemoglobin 16.2 14.0-18.0 g/dl Hematocrit 48.8 42.0-52.0 % Mean Corpuscular Volume 97.2 80.0-98.0 fL Mean Corpuscular Hemoglobin 32.3 27.0-33.0 pg Mean Corpuscular HGB Conc 33.2 31.0-36.0 g/dl Red Cell Distribution Width 14.4 11.0-16.0 % Platelet Count 257 160-400 X10*3/uL Mean Platelet Volume 9.8 9.4-12.4 fL Neutrophils Percent Auto 43.7 45-73 % Imm Gran Pct Auto 0.3 0.0-0.4 % Lymphocytes Percent Auto 48.0 20-40 % Monocytes Percent Auto 6.3 2-11 % Eosinophils Percent Auto 0.5 0-4 % Basophils Percent Auto 1.2 0-2 % NRBC Pct Auto 0.0 0.0-0.2 /100WBC Neutrophils Absolute Auto 3.3 2.0-8.3 x10*3/u L Imm Gran Abs Auto 0.02 0.00-0.03 X10*3/uL Lymphocytes Absolute Auto 3.7 1.2-4.9 X10*3/u L Monocytes Absolute Auto 0.5 0.1-1.2 X10*3/uL Eosinophils Absolute Auto 0.0 0.0-0.4 X10*3/u L Basophils Absolute Auto 0.1 0.0-0.2 X10*3/uL NRBC Abs Auto 0.000 0.0-0.012 X10*3/uL Comprehensive [place]. Panel Fa st Reviewed date:10/06/2023 04:49:53 PM Interpretation: Performing Lab:[facility], [address] [place] [phone] Notes/Report: Sodium 143 135-145 mmol/L Potassium 4.1 3.3-5.1 mmol/L Chloride 105 96-108 mmol/L Carbon Dioxide 29 22-29 mmol/L Anion Gap 13 12-20 Blood Urea Nitrogen 16 9-16 mg/dL Creatinine 1.12 0.5-1.4 mg/dL Estimated Glomerular Filt Rate > 60 NOTE: For -[place]anz[place] individuals, multiply the result by 1.210. Chronic Kidney Disease: Estimated GFR < 60 mL/min/1.73m2 Severe Kidney Disease: Estimated GFR < 15 mL/min/1.73m2 Glucose Fasting 97 60-99 mg/dL Calcium 9.4 8.4-10.2 mg/dL Bilirubin Total 0.7 0.0-1.0 mg/dL Aspartate Amino Transferase 34 5-37 U/L Alanine Aminotransferase 41 0-40 U/L Total Protein 7.7 6.5-8.0 g/dL Albumin Level 3.8 3.5-5.0 g/dL Alkaline Phosphatase 84 39-117 U/L Lipid Panel Reviewed date:10/06/2023 01:20:33 PM Interpretation: Performing Lab:[facility], [address] [place] [phone] Notes/Report: Triglycerides 96 <150 mg/dL Desirable Triglyceride: less than 150 mg/dL Borderline High Triglyceride 150-199 mg/dL High Triglyceride: 200-499 mg/dL Very High Triglyceride: greater than or equal to 5OO mg/dL Cholesterol 186 <200 mg/dL Desirable Cholesterol: less than 200 mg/dL Borderline High Cholesterol: 200-239 mg/dL High Cholesterol: greater than 239 mg/dL LDL Cholesterol Calculated 120 <100 mg/dL Desirable LDL: less than 100 mg/dL Near Optimal/Above Optimal LDL: 110-129 mg/dL Borderline High LDL: 130-159 mg/dL High LDL: 160-189 mg/dL Very High LDL: greater than or equal to 190 mg/dL HDL Cholesterol 47 >40 mg/dL Desirable HDL: greater than 40 mg/dL Note: This HDL assay may give artificially low results in patients with liver disease. PSA,Total (Free>4and<10) Reviewed date:10/06/2023 12:31:25 PM Interpretation: Performing Lab:[facility], [address] [place] [phone] Notes/Report: PSA,Total (Free>4and<10) < 0.10 0.00-4.00 ng/mL [...] Immunoassay (CMIA) TSH reflex Free T4 Reviewed date:10/06/2023 01:21:32 PM Interpretation: Performing Lab:[facility], [address] [place] [phone] Notes/Report: TSH reflex Free T4 0.23 0.32-4.0 uIU/mL UA ClnCatch+Micro w/rflx Cul t Reviewed date:10/06/2023 12:32:02 PM Interpretation: Performing Lab:[facility], [address] [place] [phone] Notes/Report: Urine, Clean Catch Color Urine Yellow Appearance Urine Clear PH 5.5 5.0-9.0 Glucose Urine UA Negative Negative mg/dL Urine Blood Negative Negative Specific [place] - Urine 1.025 1.005-1.025 Urine Protein Negative Neg-Trace mg/dL Urine Ketones Negative Negative mg/dL Nitrite Urine Negative Negative Leukocyte Esterase Urine Negative Negative RBC Urine 0-2 0-2 /HPF WBC Urine 0-5 0-5 /HPF Squamous Epithelial Cell Urine 0-2 0-2 /HPF Bacteria Urine None Seen None Seen Hyaline Casts Urine 0-2 0-2 /LPF Complete Blood Count Auto Di ff (Not yet reviewed by provider) Interpretation: Performing Lab:[facility], [address] [place] [phone] Notes/Report: White Blood Count 6.7 4.8-10.8 X10*3/uL [...] (Not yet reviewed by provider) Interpretation: Performing Lab:[address] [phone] Notes/Report: Urine, Clean Catch Color Urine Yellow Appearance Urine Clear PH 6.0 5.0-9.0 Glucose Urine UA Negative Negative mg/dL Urine Blood Negative Negative Specific [place] - Urine >= 1.030 1.005-1.025 Urine Protein Negative Neg-Trace mg/dL Urine Ketones Negative Negative mg/dL Nitrite Urine Negative Negative Leukocyte Esterase Urine Negative Negative RBC Urine 0-2 0-2 /HPF WBC Urine 0-5 0-5 /HPF Squamous Epithelial Cell Urine 0-2 0-2 /HPF Bacteria Urine None Seen None Seen Hyaline Casts Urine 0-2 0-2 /LPF Comprehensive [place]. Panel Fa st Reviewed date:10/04/2024 12:34:01 PM Interpretation: Performing Lab:[address] [phone] Notes/Report: Sodium 142 135-145 mmol/L Potassium 3.7 [...] Panel Reviewed date:10/04/2024 12:29:28 PM Interpretation: Performing Lab:[address] [phone] Notes/Report: Triglycerides 99 <150 mg/dL Desirable Triglyceride: [...] (Free>4and<10) Reviewed date:10/04/2024 12:30:34 PM Interpretation: Performing Lab:[address] [phone] Notes/Report: PSA,Total (Free>4and<10) < 0.10 0.00-4.00 ng/mL [...] between 4.0 and 10.0 ng/mL. PSA methodology: Malwarebytesty i Chemiluminescent Microparticle Immunoassay (CMIA) TSH reflex Free T4 Reviewed date:10/04/2024 12:30:54 PM Interpretation: Performing Lab:[facility], [address] [place] [phone] Notes/Report: TSH reflex Free T4 0.14 0.32-4.0 uIU/mL Occult Blood, Stool, Guaiac Reviewed date:10/10/2023 10:55:40 AM Interpretation:Negative Performing Lab: Notes/Report: Negative Occult Blood, Stool, Guaiac Neg Free T4 (Free Thyroxine) Reviewed date:10/06/2023 04:48:01 PM Interpretation: Performing Lab:[address] [phone] Notes/Report: Free T4 (Free Thyroxine) 1.07 0.71-1.85 ng/dL Free T4 (Free Thyroxine) Reviewed date:10/04/2024 12:22:57 PM Interpretation: Performing Lab:[facility], [address] [place] [phone] Notes/Report: Free T4 (Free Thyroxine) 1.22 0.71-1.85 ng/dL Reason For Referral Reason hearing loss for he aring test Diagnosis 1 Hearing loss (H91.90 ) Referral Organization Chano Condon MD Referring Provider First Name Chano Referring Provider Last Name Roseanna Referring Provider Speciality Internal M edicine Referred Provider [facility], Speech and Hearing Referred Provider Specialty Audiologists General Notes May Romano 01:45:33 PM EDT > patient's mother is making appt wants order faxed Juan Antonio Annette 01/29/2024 01:47:16 PM EDT > order faxed Referral Priority Routine Medications Medication SIG (Take, Route, Frequency, Duration) Notes Start Date End Date Status valACYclovir HCl 1 GM 1 tablet Orally 3 times a day for 7 days 09/13/2024 Active Levothyroxine Sodium 100 MCG TAKE 1 TABLET BY MOUTH EVERY DAY IN THE MORNING for 90 Active Fluorometholone 0.1 % SHAKE LQ AND INT 1 GTT IN OD D Ophthalmic for 90 Active Doxycycline Hyclate 100 MG 1 capsule Ora lly Once a day for 30 Not-Taking Ibuprofen 800 MG TAKE 1 TABLET BY MOUTH THREE TIMES A DAY for 90 Active Immunizations Vaccine Route Administration Date Status Comme nts Fluarix Quadrivalent IM Intramuscular 06/21/2016 Administe red Fluarix Quadrivalent IM Intramuscular 04/15/2017 Administe red Fluarix Quadrivalent IM Intramuscular 04/24/2018 Administe red Fluarix Quadrivalent IM Intramuscular 04/12/2019 Administe red Fluarix Quadrivalent IM Intramuscular 04/19/2020 Administe red Fluarix Quadrivalent IM Intramuscular 04/26/2021 Administe red SARS-COV-2 Moderna Unknown 10/03/2020 Administered SARS-COV-2 Moderna Unknown 10/24/2020 Administered SARS-COV-2 Moderna Unknown 06/22/2021 Administered Fluarix Quadrivalent IM Intramuscular 06/04/2022 Administe red Fluarix Quadrivalent IM Intramuscular 04/28/2023 Administe red Fluarix Quadrivalent - 150 IM Intramuscular 04/20/2024 Adm inistered TDaP Unknown 03/18/2019 Refused Social History Tobacco Use: Social History Observation Description Date Details (start date - stop date) Never Smoker NA - NA Tobacco Use/Smoking Question Answer Notes Patient is a nonsmoker Additional Findings: Tobacco Non-User Cu rrent non-smoker, currently using no form of tobacco Alcohol Screen Question Answer Notes Did you have a drink contain ing alcohol in the past year? Yes How often did you have a dri nk containing alcohol in the past year? Monthly or less (1 point) How many drinks did you have on a typical day when you were drinking in the past year? 1 or 2 drinks (0 point) How often did you have 6 or more drinks on one occasion in the past year? 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) Active confirmed Problem Hearing loss (23299444) Hearing loss (H91.90) Active confirmed Problem 636050309 Bunion (M21.619) Active confirmed Problem 224114245 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) Active confirmed Problem 07307659 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 Problem 93115643 Legally blind (H54.8) Active confirmed Vital Signs Blood pressure diastolic 66 mm Hg 09/21/2024 Height 64 in 09/21/2024 Blood pressure systolic 122 mm Hg 09/21/2024 Weight 220 lbs 09/21/2024 BMI 37.76 kg/m2 09/21/2024 Encounters Encounter Location Date Provider Diagnosis Chano Condon MD [address] [place] [id number] 10/06/2023 Chano Condon Other specified hypothyroidism E03.8 and Lymphocytosis D72.820 Chano Condon MD [address] [place] [address] [id number] 04/20/2024 Chano Condon Encounter for immunization Z23 Chano Condon MD [address] [place] [address] [address] [place] [id number] 10/04/2024 Chano Condon Lymphocytosis D72.82 0 and Other specified hypothyroidism E03.8 Chano Condon MD [address] [place] [id number] 10/10/2023 Chano Condon Down syndrome Q90.9 ; Annual physical exam Z00.00 ; Chronic disease of tonsils and adenoids, unspecified J35.9 ; Lymphocytosis D72.820 ; Other specified hypothyroidism E03.8 ; Colon cancer screening Z12.11 and Depression screening Z13.31 Chano Condon MD [address] [place] [id number] 09/13/2024 Chano Condon Frequent headaches R51.9 ; Behavioral change R46.89 and Herpes zoster without complication B02.9 Chano Condon MD [address] [place] [id number] 09/21/2024 Chano Condon Herpes zoster withou t complication B02.9 Chano Condon MD [address] [place] [address] [address] [place] [id number] 02/19/2024 Chano Condon Assessments Encounter Date Diagnosis (ICD Code) Assessment Notes Treatment Notes Treatment Clinical Notes Section Notes 10/06/2023 Other specified hypothyroidism (ICD-10 - E03.8) 10/06/2023 Lymphocytosis (ICD-10 - D72.820) 04/20/2024 Encounter for immunization (ICD-10 - Z23) 10/04/2024 Lymphocytosis (ICD-10 - D72.820) 10/10/2023 Down syndrome (ICD-10 - Q90.9) doing well. discussed with mom that 43 start colonoscopy but she will think about it 10/10/2023 Annual physical exam (ICD-10 - Z00.00) labs reviewed and discussed with patient 09/13/2024 Frequent headaches (ICD-10 - R51.9) 09/13/2024 Behavioral change (ICD-10 - R46.89) Order faxed to [facility] , pending dignostic testing 09/21/2024 Herpes zoster without complication (ICD-10 - B02.9) has recovered and headaches are gone 10/04/2024 Other specified hypothyroidism (ICD-10 - E03.8) 10/10/2023 Chronic disease of tonsils and adenoids, unspecified (ICD-10 - J35.9) followed by ent 09/13/2024 Herpes zoster without complication (ICD-10 - B02.9) 10/10/2023 Lymphocytosis (ICD-10 - D72.820) stable, will continue to monitor 10/10/2023 Other specified hypothyroidism (ICD-10 - E03.8) stable, will continue current regiment 10/10/2023 Colon cancer screening (ICD-10 - Z12.11) guaiac negative 10/10/2023 Depression screening (ICD-10 - Z13.31) negativce screen Plan Of Treatment Pending Test Test Name Order Date Electrocardiogram (EKG) 03/18/2019 CT BRAIN NO CONTRAST 09/13/2024 Complete Blood Count Auto Diff UA ClnCatch+Micro w/rflx Cult 10/04/2024 Next Appt Details Provider Name:Chano alamo, 10/12/2024 09:30:00 AM, [address] [place] [address], [address], [place], [place], [phone], Insurance Providers Payer Name Payer Address Payer Phone Subscriber Number Group Number Insured Name Patient Relationship to Insured Coverage Start Date Coverage End Date [employer] [address] [place] [address] [id number] AUNDREA PINK Self - patient is the insured [address] [address] [id number] AUNDREA PINK Self - patient is the insured Medical (General) History Medical History History ICD Code Elevated LFTs R94.5 Surgical History Surgery Date(Month/Year) Hernia repiar with Dr Rushing 10/12/2105
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
--- OUTSIDE RECORDS SUMMARY | 2024-10-04 12:55 | XMS_ITS | Data Portability ---
Author Organization [place] [facility], [facility] Address [address] [phone] Assessment No assessment recorded. Plan of Treatment [...] Recorded Time Impacted cerumen of bilateral ears 39789241730 42883 Active 2020 Impacted cerumen, bilateral ; Note: Date Diagnosed : 1 11:09 AM (H61.23) Not Available [facility] 4 03:18:52 Sensorine ural hearing loss of bilateral ears 516920365 Active 2020 Sensorine ural hearing loss, bilateral ; Note: Date Diagnosed : 1 11:09 AM (H90.3) Not Available [facility] 4 03:18:52 Impacted cerumen in left ear 86198969666 14340 Active 2023 MIKY WALLACE MD [address] [place] [address],[place] [address], [place], [phone] , [place] [facility] 4 10:11:42 Impacted cerumen in right ear 79246069393 88642 Active 2023 MIKY WALLACE MD [address] [place] [address],[place] [address], [place], [phone] , [facility] - [facility] 4 10:11:42 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 Procedures Surgical History Date Name Laterality Status Provider Name and Address Organization Details Recorded Time 4 Cerumen removal with microscope bilateral completed MIKY WALLACE MD [address] [place] [address],[address], [phone], [facility] 07/12/2024 11:34:49 4 Cerumen removal with microscope bilateral completed MIKY WALLACE MD [address] [place] [address],[address], [phone], [facility] - [facility] 02/09/2024 10:12:24 Imaging Results Imaging Date Name Status LastModified by [facility] Details LastModified Time 02/06/2024 audiogram completed [email or web address] [...] hyclate 100 mg capsule active Medication ID: [id number] Bra nd Name: doxycyclin e hyclate Se nd Method: E-Prescrib ed Subs Allowed: subs OK Medicat ionGeneric Name: doxycyclin e hyclate Not Available Not Available Not Available ibuprofen 800 mg tablet active Medication ID: [id number] Bra nd Name: ibuprofen Send Method: E-Prescrib ed Subs Allowed: subs OK Medicat ionGeneric Name: ibuprofen Not Available Not Available Not Available levothyrox ine 100 mcg tablet TAKE 1 TABLET BY MOUTH EVERY DAY IN THE MORNING active Not Available Not Available No t Available neomycin-p olymyxin-d exameth 3.5 mg/mL-10,0 00 unit/mL-0. 1% eye drops active Medication ID: [id number] Bra nd Name: neomycin-p olymyxin B-dexameth Send Method: E-Prescrib ed Subs Allowed: subs OK Medicat ionGeneric Name: neomycin-p olymyxin B-dexameth Not Available Not Available Not Available fluorometh olone 0.1 % eye drops,susp ension SHAKE LIQUID AND INSTILL 1 DROP IN RIGHT EYE DAILY active Not Available Not Available No t Available bacitracin -polymyxin B 500 unit-10,00 0 unit/gram eye ointment active Medication ID: [id number] Bra nd Name: bacitracin -polymyxin B Send Method: E-Prescrib ed Subs Allowed: subs OK Medicat ionGeneric Name: bacitracin -polymyxin B Not Available Not Available Not Available Vitals Date Recorded Body height Body mass index (BMI) Body weight Provider Name and Address Organization Details Last Updated DateTime 02/09/2024 162.56 cm 39.8 kg/m2 754153.43 g Teena Nye [place] [facility] 02/09/2024 09:42:14 Date Recorded Body height Body mass index (BMI) Body weight Provider Name and Address Organization Details Last Updated DateTime 07/12/2024 162.56 cm 39.8 kg/m2 475944.43 g Teena Nye [facility] 07/12/2024 11:14:24 Social History None recorded. Functional Status None recorded. Mental Status None recorded. Family History Nothing Reported. Medical History No medical history recorded. Past Encounters Encounter ID Performer Location Encounter Start Date Encounter Closed Date Diagnosis/Indication Diagnosis SNOMED-CT Code Diagnosis ICD10 Code Diagnosis Note [id number] MIKY WALLACE MD [facility] on [address] [place] [phone] 02/09/2024 09:20:44 02/09/2024 10:16:32 Impacted cerumen of bilateral ears [id number] 351605 H61.23 Recurrent Cerumen Impactions : Ears were meticulous ly cleaned bilaterall y today with a curette and suction. The patient tolerated this well and will follow up for repeat debridemen t per routine. Sensorineu ral hearing loss of bilateral ears 852344046 H90.3 Had hearing aids adjusted. Keep using. [id number] MIKY WALLACE MD [facility] on [address] [place] [phone] 07/12/2024 11:03:02 07/12/2024 11:36:25 Impacted cerumen of bilateral ears 4808327977 452467 H61.23 Recurrent Cerumen Impactions : Ears were meticulous ly cleaned bilaterall y today with a curette and suction. The patient tolerated this well and will follow up for repeat debridemen t per routine. Complete t risomy 21 syndrome 88126706 Q90.9 requires debridemen ts. using VANEGAS. no problems with hearing. Sensorineu ral hearing loss of bilateral ears 741196260 H90.3 Had hearing aids adjusted. Keep using. Health Concerns Section Related Observation LastModified by Organization Detai ls LastModified Time None Recorded Concern Status LastModified by Organization Details LastModified Time None Recorded Advance Directives Directive None Recorded Payers Encounter Date Sequence Insurance Name Policy Number Policy King Covered Member ID King Member ID Guarantor Name 02/09/2024 2 [place] [facility] Preet D Fern [id number] Preet D Fern 02/09/2024 1 [place] [employer] Preet D Fern [id number] Preet D Fern 07/12/2024 2 [place] Preet D Fern [id number] Preet D Fern 07/12/2024 1 [place] [employer] Preet D Fern [id number] Preet D Fern Notes Date Note Type Note Provider Name and Address Organization Details Recorded Time 02/09/2024 text/html The patient presents for cerumen impaction. The patient denies other ear problems. I reviewed his audio which showed mild to moderate SNHL AU. MIKY WALLACE MD [address] [place] [address], [phone], [facility] 02/09/2024 10:13:10 07/12/2024 text/html The patient presents for cerumen impaction. The patient denies other ear problems. I reviewed his audio which showed mild to moderate SNHL AU. MIKY WALLACE MD [address] [place] [address], [phone], [facility] 07/12/2024 11:35:25
--- OUTSIDE RECORDS SUMMARY | 2024-10-04 12:55 | XMS_ITS ---
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 Name Role Phone RoseannaOmidn Primary Care Provider Allergies No Known Allergies REASON FOR VISIT 1 WEEK FOLLOW UP APPT, accompanied by mother Medications Medication SIG (Take, Route, Frequency, [...] THREE TIMES A DAY for 90 Active Vital Signs Blood pressure systolic 122 mm Hg 09/21/19 25 Blood pressure diastolic 66 mm Hg 025 Height 64 in 09/21/2024 Weight 220 lbs 09/21/2024 BMI 37.76 kg/m2 09/21/2024 Encounters Encounter Location Date Provider Diagnosis Chano Condon MD [address] [place], [place] [phone] 09/21/2024 Chano Condon Herpes zoster withou t complication B02.9 Assessments Encounter Date Diagnosis (ICD Code) Assessment Notes Treatment Notes Treatment Clinical Notes Section Notes 09/21/2024 Herpes zoster without complication (ICD-10 - B02.9) has recovered and headaches are gone Plan Of Treatment Treatment Notes Assessment Notes Herpes zoster without complication has r ecovered and headaches are gone Next Appt Details Provider Name:Chano Mcclure ier, 10/12/2024 09:30:00 AM, [address], [address], [place], [place], [phone], Progress Notes * LEMUEL PINKOB:1980 ( 44 yo M)Acc No.[id number]:09/21/2024 Patient:?AUNDREA PINK Provider:?Chano Condon MD :1980???Age:44 Y???Sex:Male Dino e:09/21/2024 Address:[address] [place], [place] [id number] Subjective: * Chief Complaints: * ???1 WEEK FOLLOW UP APPTAcco mpanied by mother * HPI: ???Symptom(s):?patient is a 44 yo male here for ne week follow up visit,? headache is all better. rash around eye is better. * ROS:?General/Constitutional:?Denies?Chills.?Denies?Fatigue.?Denies?Fever.?Denies?Headache.?ENT:?Patient denies?decreased sense of smell, any loss of [...] BY MOUTH EVERY DAY IN THE MORNING valACYclovir HCl 1 GM Tablet 1 tablet Orally 3 times a day Taking Fluorometholone 0.1 % Suspension SHAKE LQ AND INT 1 GTT IN OD D Ophthalmic Taking Ibuprofen 800 MG Tablet TAKE 1 TABLET BY MOUTH THREE TIMES A DAY Taking Levothyroxine Sodium 100 MCG Tablet TAKE 1 TABLET BY MOUTH EVERY DAY IN THE MORNING Taking valACYclovir HCl 1 GM Tablet 1 tablet Orally 3 times a day Not-Taking/PRNDoxycycline Hyclate 100 MG Capsule 1 capsule Orally Once a day Not-Taking/PRN Doxycycline Hyclate 100 MG Capsule 1 capsule Orally Once a day * Allergies:?N.K.D.A.yes[Aller gies Verified] Objective: * Vitals:?Ht: 64, Wt: 220, BMI :37.76, BP:122/66, Wt-k.79. * Examination: ???General Examination: ?GENERAL APPEARANCE:?well developed, well nourished.?HEAD:?normocephalic.?SKIN:?rash is gone from around eye and no new lesions on head..?HEART:?no murmurs, rubs, gallops.?LUNGS:?no wheezes, rales, rhonchi, good air movement.? Assessment: * Assessment: 1.?Herpes zoster without com plication - B02.9 (Primary)??? Plan: * Treatment: * Procedure Codes:? * * Sign off status: Completed true * Provider:?Chano Condon MD Date:?0 09/21/2024 Generated for Carlos Enrique faulkner/Jazmin/Nayitting on:?10/04/2024 12:54 PM EST History and Physical Notes * HPI (History of Present Illness) Category Sub-Category Detail Notes Category Not es Symptom(s) patient is a 44 yo male here for ne week follow up visit, headache is all better. rash around eye is better. Examination Category Sub-Category Detail Notes Category Not es General Examination GENERAL APPEARANCE: well developed , well nourished HEAD: normocephalic HEART: no murmurs, rubs, ga llops LUNGS: no wheezes, rales, r honchi, good air movement SKIN: rash is gone from ar ound eye and no new lesions on head.
== END 2024-10-04 10:56 | disposition home or self-care (01) ==
LOC: HO.LNP 10:55
PROVIDERS: Visit Provider Internal Medicine
DX: D72.820 Lymphocytosis (symptomatic) (principal); E03.8 Other specified hypothyroidism; Z12.5 Encounter for screening for malignant neoplasm of prostate
CPT/HCPCS: 80053; 80061; 81001; 84153; 84439; 84443; 85025